=== PATIENT | male | born 1985 | race Caucasian/White ===

== ENCOUNTER 2018-10-11 09:01 | Inpatient (IN) | payer MEDICAID ==
[~2018-10-11] VITALS: Ht 152.4 cm; Wt 95.7 kg
[2018-10-11 09:01] VITALS: BP_SYST 135
[2018-10-11] MEDS ORDERED: KETOROLAC TROMETHAMINE 30 MG VIAL IVP ONE (09:30)
[2018-10-11] MEDS ORDERED: VANCOMYCIN HCL 1,000 MG in NS 250 ML IV ONE (09:30)
[2018-10-11] MEDS ORDERED: MORPHINE 4 MG/ML INJ. SYRINGE IVP ONE (09:30)
[2018-10-11] MEDS ORDERED: DIPHENHYDRAMINE INJ 50 MG/ML VIAL IVP ONE (09:30)
[2018-10-11] MEDS ORDERED: CEFAZOLIN 1 GM IVPB PREMIX 50 ML IV ONE (09:30)
[2018-10-11 10:00] LABS: CALCIUM 9.2 mg/dL (8.4-11.0); CREATININE 0.84 mg/dL (0.55-1.30); POTASSIUM 3.5 mmol/L (3.5-5.1)
[2018-10-11 10:01] LABS: BASOPHILS # (AUTO) 0.1 K/uL (0.0-0.2); BASOPHILS % (AUTO) 0.3 % (0.0-2.0); EOSINOPHILS # (AUTO) 0.1 K/uL (0.0-0.4); EOSINOPHILS % (AUTO) 0.8 % (0.0-4.0); HEMATOCRIT 43.5 % (36-54); HEMOGLOBIN 14.9 g/dL (14.0-18.0); LYMPHOCYTES % (AUTO) 11.1 % (20.5-51.5); MEAN CORPUSCULAR HEMOGLOBIN 28 pg (27-31); MEAN CORPUSCULAR HGB CONC 34 % (32-36); MEAN CORPUSCULAR VOLUME 83 fL (79.0-98.0); MONOCYTES # (AUTO) 1.4 K/uL (0.0-1.0); NEUTROPHILS # (AUTO) 14.4 K/uL (1.8-7.7); NEUTROPHILS % (AUTO) 79.8 % (40.0-70.0); PLATELET COUNT (AUTO) 229 K/uL (130-430); RED BLOOD CELL COUNT(AUTO) 5.23 MIL/uL (4.2-6.2); RED CELL DISTRIBUTION WIDTH 11.7 % (9.0-15.0)
[2018-10-11 10:02] LABS: PROTHROMBIN TIME 10.7 SECS (9.5-12.5)
[2018-10-11 10:05] LABS: ALBUMIN 3.6 g/dL (3.4-4.8); TOTAL BILIRUBIN 1.1 mg/dL (0.0-1.0)
[2018-10-11 10:16] LABS: BILIRUBIN,URINE 1+ (NEGATIVE); BLOOD, URINE NEGATIVE (NEGATIVE); CLARITY/URINE CLEAR (CLEAR); COLOR,URINE YELLOW (YELLOW); GLUCOSE,URINE NEGATIVE (NEGATIVE); KETONES,URINE TRACE (NEGATIVE); LEUKOCYTE ESTERASE ,URINE NEGATIVE (NEGATIVE); NITRITE, URINE POSITIVE (NEGATIVE); PH,URINE 6.5 (5.0-8.0); PROTEIN URINE 1+ (NEGATIVE)
[2018-10-11 11:07] LABS: BACTERIA,URINE FEW /HPF (None Seen); MUCUS,URINE 2+ /LPF (None Seen); RBC,URINE 0-3 /HPF (0-3); WBC,URINE 0-3 /HPF (0-3)
[2018-10-11] MEDS ORDERED: VANCOMYCIN HCL 1000 MG/VIAL IV ONE (12:20)
[2018-10-11] MEDS ORDERED: NACL 0.9% 1,000 ML IV ONE (13:00)
[2018-10-11 14:07] VITALS: BP_SYST 142
[2018-10-11] MEDS ORDERED: DOCUSATE SODIUM 100 MG CAPSULE PO PRN (14:15)
[2018-10-11] MEDS ORDERED: ACETAMINOPHEN 325 MG TABLET PO PRN (14:15)
[2018-10-11] MEDS ORDERED: POTASSIUM CHLORIDE 20 MEQ TAB.PRT.SR PO PRN (14:15)
[2018-10-11] MEDS ORDERED: MAGNESIUM SULFATE 50 ML IV PRN (14:15)
[2018-10-11] MEDS ORDERED: LORazepam 2 MG/ML VIAL IVP PRN (14:15)
[2018-10-11] MEDS ORDERED: ZOLPIDEM TARTRATE 5 MG TABLET PO PRN (14:15)
[2018-10-11] MEDS ORDERED: ONDANSETRON HCL 4 MG/2 ML VIAL IVP PRN (14:15)
[2018-10-11] MEDS ORDERED: MUPIROCIN 2% TOPICAL OINTMENT 22 GM NS PRN (14:15)
[2018-10-11] MEDS ORDERED: MORPHINE 4 MG/ML INJ. SYRINGE IVP PRN (14:15)
[2018-10-11] MEDS: NACL 0.9% 1,000 ML IV SCH (15:59)
[2018-10-11 16:22] VITALS: BP_SYST 122
[2018-10-11 20:00] VITALS: BP_SYST 105
[2018-10-11] MEDS ORDERED: VANCOMYCIN HCL 1,000 MG in NS 250 ML IV SCH (20:00)
[2018-10-11] MEDS: HEPARIN SODIUM,PORCINE 5000 UNITS/ML VIAL SUBCUT SCH (20:36)
[2018-10-11] MEDS: ACETAMINOPHEN 325 MG TABLET PO PRN (20:38)
[2018-10-11] MEDS ORDERED: AMPICILLIN SODIUM/SULBACTAM NA 3 GM VIAL ONE (21:26)
[2018-10-11] MEDS ORDERED: AMPICILLIN SODIUM 2 GM VIAL ONE (21:48)
[2018-10-11] MEDS: AMPICILLIN SODIUM 2 GM in NS 100 ML IV SCH (23:12)
[2018-10-12] MEDS: NACL 0.9% 1,000 ML IV SCH ×3 (00:21→17:20)
[2018-10-12 00:36] VITALS: BP_SYST 125
[2018-10-12] MEDS: AMPICILLIN SODIUM 2 GM in NS 100 ML IV SCH ×4 (05:20→23:56)
[2018-10-12 06:21] LABS: CALCIUM 8.7 mg/dL (8.4-11.0); CREATININE 0.71 mg/dL (0.55-1.30); POTASSIUM 3.4 mmol/L (3.5-5.1)
[2018-10-12] MEDS: ACETAMINOPHEN 325 MG TABLET PO PRN ×2 (06:39→16:58)
[2018-10-12 06:44] LABS: BASOPHILS % (AUTO) 0.1 % (0.0-2.0); EOSINOPHILS # (AUTO) 0.1 K/uL (0.0-0.4); EOSINOPHILS % (AUTO) 0.5 % (0.0-4.0); HEMATOCRIT 37.6 % (36-54); HEMOGLOBIN 12.7 g/dL (14.0-18.0); LYMPHOCYTES # (AUTO) 1.9 K/uL (1.0-5.5); LYMPHOCYTES % (AUTO) 10.6 % (20.5-51.5); MEAN CORPUSCULAR HEMOGLOBIN 28 pg (27-31); MEAN CORPUSCULAR HGB CONC 34 % (32-36); MEAN CORPUSCULAR VOLUME 84 fL (79.0-98.0); MONOCYTES # (AUTO) 1.3 K/uL (0.0-1.0); MONOCYTES % (AUTO) 7.4 % (1.7-9.3); NEUTROPHILS # (AUTO) 14.3 K/uL (1.8-7.7); NEUTROPHILS % (AUTO) 81.4 % (40.0-70.0); PLATELET COUNT (AUTO) 217 K/uL (130-430); RED BLOOD CELL COUNT(AUTO) 4.49 MIL/uL (4.2-6.2); RED CELL DISTRIBUTION WIDTH 11.9 % (9.0-15.0); WHITE BLOOD COUNT (AUTO) 17.6 K/uL (4.8-10.8)
[2018-10-12 08:00] VITALS: BP_SYST 102
[2018-10-12] MEDS: HEPARIN SODIUM,PORCINE 5000 UNITS/ML VIAL SUBCUT SCH ×2 (08:32→21:42)
[2018-10-12 12:04] VITALS: BP_SYST 115
[2018-10-12 15:09] VITALS: BP_SYST 115
[2018-10-12 19:20] VITALS: BP_SYST 112
[2018-10-13] MEDS: MORPHINE 4 MG/ML INJ. SYRINGE IVP PRN ×3 (01:22→14:37)
[2018-10-13 01:29] VITALS: BP_SYST 119
[2018-10-13] MEDS: AMPICILLIN SODIUM 2 GM in NS 100 ML IV SCH (05:59)
[2018-10-13 07:07] LABS: BASOPHILS # (AUTO) 0.1 K/uL (0.0-0.2); BASOPHILS % (AUTO) 0.4 % (0.0-2.0); CALCIUM 8.6 mg/dL (8.4-11.0); CREATININE 0.7 mg/dL (0.55-1.30); EOSINOPHILS # (AUTO) 0.3 K/uL (0.0-0.4); HEMOGLOBIN 12.5 g/dL (14.0-18.0); LYMPHOCYTES # (AUTO) 1.8 K/uL (1.0-5.5); MONOCYTES % (AUTO) 6.4 % (1.7-9.3); POTASSIUM 3.8 mmol/L (3.5-5.1); RED CELL DISTRIBUTION WIDTH 11.9 % (9.0-15.0)
[2018-10-13 07:11] LABS: HEMATOCRIT 36.6 % (36-54); LYMPHOCYTES % (AUTO) 11.2 % (20.5-51.5); MEAN CORPUSCULAR HEMOGLOBIN 29 pg (27-31); MEAN CORPUSCULAR HGB CONC 34 % (32-36); MEAN CORPUSCULAR VOLUME 84 fL (79.0-98.0); NEUTROPHILS # (AUTO) 12.9 K/uL (1.8-7.7); PLATELET COUNT (AUTO) 247 K/uL (130-430); RED BLOOD CELL COUNT(AUTO) 4.39 MIL/uL (4.2-6.2); WHITE BLOOD COUNT (AUTO) 16.1 K/uL (4.8-10.8)
[2018-10-13 07:52] VITALS: BP_SYST 125
[2018-10-13] MEDS: HEPARIN SODIUM,PORCINE 5000 UNITS/ML VIAL SUBCUT SCH ×2 (08:09→20:39)
[2018-10-13] MEDS ORDERED: ceFAZolin SODIUM 1 GM in D5W 50 ML IV ONE (09:45)
[2018-10-13] MEDS: VANCOMYCIN HCL 1,000 MG in NS 250 ML IV SCH ×2 (10:34→18:01)
[2018-10-13] MEDS: guaiFENesin/DEXTROMETHORPHAN 10 ML UDC PO PRN ×2 (10:34→14:36)
[2018-10-13 11:30] VITALS: BP_SYST 108
[2018-10-13] MEDS ORDERED: CLINDAMYCIN 300 MG in D5W 50 ML IV ONE (11:30)
[2018-10-13] MEDS: NACL 0.9% 1,000 ML IV SCH ×2 (12:30→20:35)
[2018-10-13] MEDS ORDERED: ceFAZolin SODIUM 1 GM in D5W 50 ML IV SCH (14:00)
[2018-10-13 15:45] VITALS: BP_SYST 109
[2018-10-13] MEDS: CLINDAMYCIN 300 MG in D5W 50 ML IV SCH (17:18)
[2018-10-13 19:15] VITALS: BP_SYST 108
[2018-10-14] MEDS: CLINDAMYCIN 300 MG in D5W 50 ML IV SCH ×2 (00:01→05:59)
[2018-10-14 01:04] VITALS: BP_SYST 112
[2018-10-14] MEDS: VANCOMYCIN HCL 1,000 MG in NS 250 ML IV SCH ×2 (01:29→10:07)
[2018-10-14 06:53] LABS: BASOPHILS # (AUTO) 0.2 K/uL (0.0-0.2); EOSINOPHILS # (AUTO) 0.6 K/uL (0.0-0.4); EOSINOPHILS % (AUTO) 4.3 % (0.0-4.0); HEMATOCRIT 37.9 % (36-54); HEMOGLOBIN 12.5 g/dL (14.0-18.0); LYMPHOCYTES # (AUTO) 1.8 K/uL (1.0-5.5); LYMPHOCYTES % (AUTO) 11.9 % (20.5-51.5); MEAN CORPUSCULAR HEMOGLOBIN 28 pg (27-31); MEAN CORPUSCULAR HGB CONC 33 % (32-36); MEAN CORPUSCULAR VOLUME 85 fL (79.0-98.0); MONOCYTES # (AUTO) 0.9 K/uL (0.0-1.0); MONOCYTES % (AUTO) 6.2 % (1.7-9.3); NEUTROPHILS # (AUTO) 11.5 K/uL (1.8-7.7); NEUTROPHILS % (AUTO) 76.6 % (40.0-70.0); PLATELET COUNT (AUTO) 333 K/uL (130-430); RED BLOOD CELL COUNT(AUTO) 4.48 MIL/uL (4.2-6.2); RED CELL DISTRIBUTION WIDTH 11.3 % (9.0-15.0)
[2018-10-14 07:07] LABS: CALCIUM 8.9 mg/dL (8.4-11.0); CREATININE 0.67 mg/dL (0.55-1.30); POTASSIUM 3.4 mmol/L (3.5-5.1)
[2018-10-14 08:00] VITALS: BP_SYST 117
[2018-10-14] MEDS: NACL 0.9% 1,000 ML IV SCH (08:57)
[2018-10-14] MEDS: HEPARIN SODIUM,PORCINE 5000 UNITS/ML VIAL SUBCUT SCH (10:09)
[2018-10-14] MEDS ORDERED: AMOX-520 PO (10:49)
[2018-10-14] MEDS ORDERED: CLIN300C11 PO (10:49)
[2018-10-14 11:22] VITALS: BP_SYST 118
[2018-10-14 12:48] VITALS: BP_SYST 118
[2018-10-14] MEDS ORDERED: VANCOMYCIN HCL 1,750 MG in NS 250 ML IV SCH (18:00)
== END 2018-10-14 13:45 | disposition home or self-care (01) | DRG 720 ==
LOC: SED 09:01 → SMU 12:46
PROVIDERS: ADMIT General Practice; ATTEND General Practice
DX: A41.9 Sepsis, unspecified organism (principal); E66.01 Morbid (severe) obesity due to excess calories; L03.116 Cellulitis of left lower limb; J40 Bronchitis, not specified as acute or chronic; E87.1 Hypo-osmolality and hyponatremia; E87.6 Hypokalemia; Z68.41 Body mass index [BMI] 40.0-44.9, adult
CPT/HCPCS: 36415; 71045; 80048; 80053; 80202-TC; 81000-TC; 83036; 83605; 83735-TC; 85025; 85610-TC; 87040-TC; 90656; 93971; 96365; 96366; 96367; 96375; 99285; J0290; J0295; J0690; J1200; J1644; J1885; J2270; J3370; J3490; J7030; J7050; J7060

== ENCOUNTER 2018-10-21 22:59 | Emergency (ER) | payer MEDICAID ==
[~2018-10-21] VITALS: Ht 152.4 cm; Wt 95.7 kg
[~2018-10-21 22:59] MED LIST: AMOX-520 PO; CLIN300C11 PO
[2018-10-21 23:05] VITALS: BP_SYST 140
[2018-10-22] MEDS ORDERED: LIDOCAINE/EPI 1% 1:100000 20 ML VIAL IJ ONE
[2018-10-22] MEDS ORDERED: HYDROcodone/ACETAMIN 10-325 MG TAB ONE (00:55)
[2018-10-22] MEDS ORDERED: CEPHALEXIN 500 MG CAPSULE PO ONE (01:15)
[2018-10-22 01:45] VITALS: BP_SYST 132
[2018-10-22] MEDS ORDERED: HYDROcodone/ACETAMIN 10-325 MG TAB PO ONE (02:00)
== END 2018-10-22 01:45 | disposition home or self-care (01) ==
LOC: SED 22:59
DX: L02.416 Cutaneous abscess of left lower limb (principal); L03.116 Cellulitis of left lower limb
CPT/HCPCS: 99283

== ENCOUNTER 2018-10-24 11:56 | Emergency (ER) | payer MEDICAID ==
[~2018-10-24] VITALS: Ht 152.4 cm; Wt 95.7 kg
[2018-10-24 11:56] VITALS: BP_SYST 150
--- NOTE | 2018-10-24 11:56 | NUR ---
BROOKE Cochran at bedside examining patient.
--- NOTE | 2018-10-24 11:56 | NUR ---
patient arrived via POV from home with full mentation. patient is palest[place] speaking only. patient came in for wound drainage. patient was last seen 10/21 for the same wounds. patient had a moderate amount of drainage of wound. patient has pain 8/10 with cleaning and movement. patients wounds are on his lower left lat calf less than 5 mm for both. woundbed is beefy red, site is cool to the touch, without redness to the edges. no odor. no other complain or injury at this time.
--- NOTE | 2018-10-24 11:56 | NUR ---
BROUGHT BACK TO BED #4 AND TRIAGED. REPORT GIVEN TO BHUMI
--- NOTE | 2018-10-24 13:21 | NUR ---
Pt requested pain rx as he only has 2 [place] 5-325 left and is concerned he won't be able to tolerate the pain at home. Dr. Mathis notified. Rx to be received.
[2018-10-24 13:28] VITALS: BP_SYST 133
--- NOTE | 2018-10-24 13:29 | NUR ---
Patient given written and verbal discharge instructions and verbalizes understanding. ER MD discussed with patient the results and treatment provided. Patient in stable condition. ID arm band removed. Rx of NORCO, 5/325 (QUANTITY 15) given. Patient educated on pain management and to follow up with PMD. Pain Scale 0/10. Opportunity for questions provided and answered. Medication side effect fact sheet provided.
== END 2018-10-24 13:28 | disposition home or self-care (01) ==
LOC: SED 11:56
DX: Z48.01 Encounter for change or removal of surgical wound dressing (principal); R03.0 Elevated blood-pressure reading, without diagnosis of hypertension; Z79.899 Other long term (current) drug therapy
CPT/HCPCS: 99283

== ENCOUNTER 2018-10-28 12:10 | Emergency (ER) | payer MEDICAID ==
[~2018-10-28] VITALS: Ht 152.4 cm; Wt 95.7 kg
[2018-10-28 12:25] VITALS: BP_SYST 129
--- NOTE | 2018-10-28 12:34 | NUR ---
Patient to ER bed 2 to gown for evaluation. Side rails up. Report given to Arben HAYNES.
--- NOTE | 2018-10-28 12:35 | NUR ---
Pt presents to ED for wound check. Wound healing WNL. No S/S of infection.
--- NOTE | 2018-10-28 12:50 | NUR ---
ER at bedside examining patient.
[2018-10-28 13:33] VITALS: BP_SYST 129
--- NOTE | 2018-10-28 13:33 | NUR ---
Patient given written and verbal discharge instructions and verbalizes understanding. ER MD discussed with patient the results and treatment provided. Patient in stable condition. ID arm band removed. Rx of Bactrim DS given. Patient educated on pain management and to follow up with PMD. Pain Scale 0. Opportunity for questions provided and answered. Medication side effect fact sheet provided.
== END 2018-10-28 13:33 | disposition home or self-care (01) ==
LOC: SED 12:10
DX: Z48.01 Encounter for change or removal of surgical wound dressing (principal)
CPT/HCPCS: 99283